=== PATIENT | male | born 1985 | race African-American/Black ===

== ENCOUNTER 2019-01-09 16:56 | Emergency (ER) | payer MEDICAID ==
[~2019-01-09] VITALS: Ht 165.1 cm; Wt 66.2 kg
[2019-01-09 17:01] VITALS: BP 126/79
--- NOTE | 2019-01-09 17:06 | NUR ---
ASSISTED PT TO WAIT IN THE LOBBY.
--- NOTE | 2019-01-09 17:26 | NUR ---
33/M PRESENTS TO ED, C/O SOB X3 DAYS. REPORTS COUGH. REPORTS L SIDED PLEURITIC CP WITH DEEP BREATHING AND COUGH. PT AWAKE AND ALERT, SKIN NORMAL COLOR WARM AND DRY, SPO2 97% ON RA, RR 18 EVEN AND UNLABORED. LUNG SOUNDS WITH MILD WHEEZE ON R LOWER LOBE. HR EVEN AND REGULAR. HX ASTHMA RX ALBUTEROL INH (APPROX 3X PER DAY), ALBUTEROL NEB THIS AM; DENIES RELIEF
--- NOTE | 2019-01-09 17:26 | NUR ---
PT TAKEN TO BED 11.
[2019-01-09] MEDS ORDERED: ALBUTEROL 0.083% 2.5 MG/3 ML NEBU INH ONE (18:00)
[2019-01-09 18:20] LABS: BASOPHILS % (AUTO) 0.7 % (0.0-2.0); EOSINOPHILS # (AUTO) 0.3 K/uL (0-0.4); EOSINOPHILS % (AUTO) 6.4 % (0.0-4.0); HEMATOCRIT 44.9 % (36-52); HEMOGLOBIN 15.4 g/dL (12.0-18.0); LYMPHOCYTES # (AUTO) 0.5 K/uL (2.0-11.5); LYMPHOCYTES % (AUTO) 11.1 % (20.5-51.1); MEAN CORPUSCULAR HEMOGLOBIN 31 pg (27-31); MEAN CORPUSCULAR HGB CONC 34 g/dL (33-37); MEAN CORPUSCULAR VOLUME 89.8 fL (80-94); MONOCYTES # (AUTO) 0.8 K/uL (0.8-1.0); MONOCYTES % (AUTO) 19.3 % (1.7-9.3); NEUTROPHILS # (AUTO) 2.6 K/uL (1.8-7.7); NEUTROPHILS % (AUTO) 62.5 % (42.2-75.2); PLATELET COUNT (AUTO) 218 K/uL (140-450); RED CELL DISTRIBUTION WIDTH 14.8 % (11.6-13.7); WHITE BLOOD COUNT (AUTO) 4.2 K/uL (4.8-10.8)
[2019-01-09 18:29] LABS: CARBON DIOXIDE 29.5 mmol/L (21-32); CREATININE 1.2 mg/dL (0.7-1.3); POTASSIUM 3.5 mmol/L (3.5-5.1)
--- NOTE | 2019-01-09 19:28 | NUR ---
PT LAYING IN BED, RR EVEN AND UNLABORED. REPORTS TOLERABLE 5/10 CP. REPORTS IMPROVEMENT IN SOB. VSS. ALL NEEDS MET.
[2019-01-09 20:07] VITALS: BP 129/83
--- NOTE | 2019-01-09 20:07 | NUR ---
Patient discharged with v/s stable by Dr Velez. Written and verbal after care instructions given and explained by Dr Velez. Patient alert, oriented and verbalized understanding of instructions. Ambulatory with steady gait. All questions addressed prior to discharge by Dr Velez. ID band removed by Dr Velez. Patient advised to follow up with PMD by Dr Velez. Rx of TESSALON PERLES, AUGMENTIN given by Dr Velez. Patient educated on indication of medication including possible reaction and side effects by Dr Velez. Opportunity to ask questions provided and answered by Dr Velez.
== END 2019-01-09 20:07 | disposition home or self-care (01) ==
LOC: MED 16:56
DX: J20.9 Acute bronchitis, unspecified (principal)
CPT/HCPCS: 36415; 71046; 80048; 84484; 85025; 93005; 94640; 99284; J7613

== ENCOUNTER 2019-03-02 21:03 | Emergency (ER) | payer MEDICAID ==
[~2019-03-02] VITALS: Ht 165.1 cm; Wt 66.7 kg
[2019-03-02 21:33] VITALS: BP 113/71
--- NOTE | 2019-03-02 21:33 | NUR ---
PT TAKEN BACK TO LOBBY. PT GAVE URINE SAMPLE.
--- NOTE | 2019-03-02 22:40 | NUR ---
PT AMBULATED TO BED 06
--- NOTE | 2019-03-02 22:46 | NUR ---
33 Y/O MALE C/O LT TESTICLE PAIN X 4 DAYS. PT STATES 7/10 CONSTANT PINCHING. PT STATES PAIN RADIATE TO LT PELVIS. DENIES PENILE DISCHARGE. DENIES N/V/D. NO URINARY SYMPTOMS PER PT. PT STATES WORSE W/ AMBULATION. RR EVEN AND UNLABORED. PT SITTING IN BED CALM AND PLEASANT. VSS. MEDHX: ASTHMA ALLERGIES: NKA
--- NOTE | 2019-03-02 23:30 | NUR ---
Dr. Kirk examining patient.
--- NOTE | 2019-03-02 23:56 | NUR ---
Ultrasound at bedside.
--- NOTE | 2019-03-03 00:30 | NUR ---
PT RESTING IN BED, POSITIONED FOR COMFORT. BED LOCKED AND IN LOW POSITION. X 1 SIDE RAIL RAISED. VSS. WILL CONTINUE TO MONITOR.
[2019-03-03 01:02] VITALS: BP 113/71
--- NOTE | 2019-03-03 01:02 | NUR ---
Patient discharged with v/s stable. Written and verbal after care instructions given and explained. Patient alert, oriented and verbalized understanding of instructions. Ambulatory with steady gait. All questions addressed prior to discharge. ID band removed. Patient advised to follow up with PMD. Rx of MOTRIN given. Patient educated on indication of medication including possible reaction and side effects. Opportunity to ask questions provided and answered. PT ACCOMPANIED BY GIRLFRIEND ON DISCHARGE
== END 2019-03-03 01:02 | disposition home or self-care (01) ==
LOC: MED 21:03
DX: N50.812 Left testicular pain (principal); J45.909 Unspecified asthma, uncomplicated
CPT/HCPCS: 76870; 99284; Q0092

== ENCOUNTER 2021-06-24 06:07 | Emergency (ER) | payer MEDICAID ==
[~2021-06-24] VITALS: Ht 165.1 cm; Wt 73.9 kg
[2021-06-24 06:10] VITALS: BP 139/86
--- NOTE | 2021-06-24 06:16 | NUR ---
TO BED #4 AMBULATORY
--- NOTE | 2021-06-24 06:26 | NUR ---
DR WORTHY EXAMINING PT.
[2021-06-24] MEDS ORDERED: NAPR-1704 PO (06:33)
--- NOTE | 2021-06-24 06:33 | NUR ---
35 Y/O MALE BIBS, C/O HEADACHES X1 WK. PATIENT PRESENTS TO ED WITH NO VISUAL DISTURBANCE, NO TRAUMA. PT STATES HE HAS BEEN HAVING THE PAIN FOR APPROXIMATELY 1 WEEK AND THE PAIN GOT WORSE LAST NIGHT; PT TOOK TYLENOL AT 1800 YESTERDAY WITH MINIMAL RELIEF. DENIES N/V/D; SKIN IS PINK/WARM/DRY; AAOX4 WITH EVEN AND STEADY GAIT; LUNGS CLEAR BL; HR EVEN AND REGULAR; PT DENIES ANY FEVER, CP, SOB, OR COUGH AT THIS TIME; PATIENT STATES PAIN OF 10/10 AT THIS TIME; VSS; PATIENT POSITIONED FOR COMFORT; HOB ELEVATED; BEDRAILS UP X2; BED DOWN. ER MD MADE AWARE OF PT STATUS. SHABNAMLes- CIRILO MEEHAN
[2021-06-24 06:39] VITALS: BP 139/86
--- NOTE | 2021-06-24 06:40 | NUR ---
Patient discharged with v/s stable. Written and verbal after care instructions given and explained. Patient alert, oriented and verbalized understanding of instructions. Ambulatory with steady gait. All questions addressed prior to discharge. ID band removed. Patient advised to follow up with PMD. Rx of NAPROXEN given. Patient educated on indication of medication including possible reaction and side effects. Opportunity to ask questions provided and answered. VSS, A/OX4, AMBULATORY, UNLABORED BREATHING, AND CALM DEMEANOR.
== END 2021-06-24 06:39 | disposition home or self-care (01) ==
LOC: MED 06:07
DX: G44.209 Tension-type headache, unspecified, not intractable (principal); J45.909 Unspecified asthma, uncomplicated; Z79.1 Long term (current) use of non-steroidal anti-inflammatories (NSAID)
CPT/HCPCS: 99282

== ENCOUNTER 2022-01-02 11:00 | Emergency (ER) | payer MEDICAID ==
[~2022-01-02] VITALS: Ht 172.7 cm; Wt 81.6 kg
[~2022-01-02 11:00] MED LIST: NAPR-1704 PO
[2022-01-02 11:18] VITALS: BP 124/82
[2022-01-02] MEDS ORDERED: PROM118S5 PO (14:52)
[2022-01-02] MEDS ORDERED: BENZ-300 PO (14:52)
[2022-01-02] MEDS ORDERED: IBUP-2213 PO (14:52)
== END 2022-01-02 15:35 | disposition home or self-care (01) ==
LOC: MED 11:00
DX: J06.9 Acute upper respiratory infection, unspecified (principal); Z20.822 Contact with and (suspected) exposure to COVID-19; J45.909 Unspecified asthma, uncomplicated
CPT/HCPCS: 99283

== ENCOUNTER 2022-06-24 11:09 | Emergency (ER) | payer MEDICAID ==
[~2022-06-24] VITALS: Ht 165.1 cm; Wt 77.1 kg
[~2022-06-24 11:09] MED LIST changes: +BENZ-300 PO; +IBUP-2213 PO; +PROM118S5 PO
[2022-06-24 11:29] VITALS: BP 137/80
--- NOTE | 2022-06-24 11:37 | NUR ---
TO BED 8 WITH NO DIFFICULTY, NO SOB, AMB. WITH NO DISTRESS
--- NOTE | 2022-06-24 11:43 | NUR ---
36YO MALE PT C/O SORE THROAT AND EAR DISCOMFORT X1WEEK. REPORTS SUDDEN ONSET. \ R EAR CANAL PRESENTS REDDENED W/O SWELLING. THROAT -PINK W/O SWELLING. DENIES N/V/D, FEVER, CHILLS, SOB, DIFFICULTY SWALLOWING, RELIEF AFTER DAY/NYQUIL OR ANYONE SICK AT HOME. PT AAOX4, HOB POSITIONED PER COMFORT. HX: ASTHMA NKA
--- NOTE | 2022-06-24 12:30 | NUR ---
SOM ARZATE AT BEDSIDE FOR EVALUATION
[2022-06-24] MEDS ORDERED: IBUP-1842 PO (12:35)
--- NOTE | 2022-06-24 12:42 | NUR ---
Patient discharged with v/s stable. Written and verbal after care instructions FOR SORE THROAT given and explained. Patient alert, oriented and verbalized understanding of instructions. Ambulatory with steady gait. All questions addressed prior to discharge. ID band removed. Patient advised to follow up with PMD. Rx of MOTRIN given. Opportunity to ask questions provided and answered.
--- NOTE | 2022-06-24 12:50 | NUR ---
The patient's care was reviewed and supervised by SUMMER CHRISTIANSON RN.
== END 2022-06-24 12:42 | disposition home or self-care (01) ==
LOC: MED 11:09
DX: J02.9 Acute pharyngitis, unspecified (principal); J45.909 Unspecified asthma, uncomplicated; Z79.899 Other long term (current) drug therapy
CPT/HCPCS: 99282

== ENCOUNTER 2022-07-05 08:20 | Emergency (ER) | payer MEDICAID ==
[~2022-07-05] VITALS: Ht 165.1 cm; Wt 77.1 kg
[~2022-07-05 08:20] MED LIST changes: +IBUP-1842 PO
[2022-07-05 08:43] VITALS: BP 137/94
[2022-07-05] MEDS ORDERED: AMOXICILLIN 500 MG CAP PO ONE (11:00)
--- NOTE | 2022-07-05 11:21 | NUR ---
26 yo/m presents to ED w c/o sore throat x4 days, reports his kids also have same symptoms. pt denies any difficulty swallowing, sob, or other symptoms. pmh: asthma allergies: denies
[2022-07-05] MEDS ORDERED: AMOX500C25 PO (11:28)
[2022-07-05] MEDS ORDERED: MENT7.6L6 PO (11:30)
[2022-07-05] MEDS ORDERED: IBUP-2213 PO (11:30)
[2022-07-05 11:44] VITALS: BP 130/79
--- NOTE | 2022-07-05 11:45 | NUR ---
Patient discharged with v/s stable. Written and verbal after care instructions given and explained. Patient verbalized understanding. Ambulatory with steady gait. All questions addressed prior to discharge. Advised to follow up with PMD.
== END 2022-07-05 11:45 | disposition home or self-care (01) ==
LOC: MED 08:20
DX: J02.9 Acute pharyngitis, unspecified (principal); J45.909 Unspecified asthma, uncomplicated; Z79.899 Other long term (current) drug therapy; Z79.1 Long term (current) use of non-steroidal anti-inflammatories (NSAID); Z79.2 Long term (current) use of antibiotics
CPT/HCPCS: 99283

== ENCOUNTER 2022-11-13 09:10 | Emergency (ER) | payer MEDICAID ==
[~2022-11-13] VITALS: Ht 172.7 cm; Wt 61.2 kg
[~2022-11-13 09:10] MED LIST changes: +AMOX500C25 PO; +MENT7.6L6 PO
[2022-11-13 09:33] VITALS: BP 115/75; PULSE 86; RESP 18; TEMP 98.6; O2SAT 98
[2022-11-13] MEDS ORDERED: predniSONE 20 MG TAB PO ONE (09:50)
[2022-11-13] MEDS ORDERED: ALBUTEROL 0.083% 2.5 MG/3 ML NEBU INH ONE (09:50)
[2022-11-13] MEDS ORDERED: ALBUTEROL SULFATE/IPRATROPIU 3 ML SOL IH ONE (09:50)
[2022-11-13 09:58] VITALS: PULSE 64; RESP 20; O2SAT 97
[2022-11-13] MEDS ORDERED: ALBU0.0912 INH (11:24)
[2022-11-13] MEDS ORDERED: PRED20TA5 PO (11:24)
== END 2022-11-13 11:44 | disposition home or self-care (01) ==
LOC: MED 09:10
DX: J45.901 Unspecified asthma with (acute) exacerbation (principal); Z79.899 Other long term (current) drug therapy
CPT/HCPCS: 94640; 99283; J7512; J7613